=== PATIENT | female | born 1970 ===

== ENCOUNTER → 2019-11-30 | Outpatient (CLI) | payer OTHER ==
[2019-12-02 08:24] LABS: Hepatitis B Surface Antibody Negative
[2019-12-02 10:32] LABS: Hepatitis B Surface Antigen Negative (Negative)
== END | disposition home or self-care (01) ==
LOC: LAB 11:55
PROVIDERS: ATTEND Nurse Practitioner
DX: Z77.21 Contact with and (suspected) exposure to potentially hazardous body fluids (principal)
CPT/HCPCS: 36415; 86703; 86706; 86803; 87340